=== PATIENT | male | born 1970 | race Caucasian/White ===

== ENCOUNTER 2016-11-23 22:10 | Observation (INO) ==
[2016-11-23] MEDS ORDERED: *HR* Morphine 2 MG/ML SYRINGE IVP ONE (22:48)
[2016-11-23] MEDS ORDERED: Ondansetron 4 MG/2 ML VIAL IVP ONE (22:49)
--- NOTE | 2016-11-23 22:53 | Emergency Department Note ---
Disposition Clinical Impression: Epididymitis Disposition: Admitted As Inpatient Condition: Good Male Urogenital HPI - General Chief complaint: ED Urogenital-Male Stated complaint: Swollen Testricles Time Seen by Provider: 11/23/16 22:19 Source: patient, family Mode of arrival: private vehicle Limitations: no limitations Nursing Notes Reviewed: Yes Vital Signs Reviewed: Yes - History of Present Illness Pt Subjective Complaint: testicle pain, testicle swelling, other (Sent here by primary care provider for admission. Diagnosed with epididymitis on Sunday by ultrasound. Was started on antibiotics and is getting worse.) Onset (ago): week(s) Duration: constant Location: left testicle Radiation: left inguinal region Severity: moderate Quality: aching, sharp, stabbing Improves with: none Worsens with: palpation, movement other (Immunocompromised) Reports: swelling, mass (Tender thickened area inferior to the left testicle. ) , fever, nausea/vomiting (Nausea, no vomiting). Denies: discharge, urinary retention, hematuria, dysuria, incontinence - Related Data Sexually active: Yes Previous Rx's Medication Instructions Recorded Amoxicillin/Clavulanate [Augmentin] 875 mg PO BIDWM #10 tablet 06/06/15 Potassium Chloride 20 meq PO BID #6 tab.er.prt 06/06/15 Meloxicam [Mobic] 7.5 mg PO DAILY #10 tablet 10/13/16 Allergies Allergy/AdvReac Type Severity Reaction Status Date / Time doxycycline Allergy Diarrhea Verified 11/23/16 22:16 shellfish derived Allergy Anaphylaxis Verified 11/23/16 22:16 All systems ED: reviewed and negative except as stated. Review of Systems: As Per HPI Constitutional: Reports: fever. Denies: chills, weakness, weight change, night sweats Eyes: Denies: eye pain, eye discharge Cardiovascular: Denies: chest pain, palpitations Respiratory: Denies: dyspnea Gastrointestinal: Reports: abdominal pain ("A little, sometimes." Patient points to the suprapubic area), nausea. Denies: vomiting, diarrhea, constipation, hematemesis, melena Genitourinary: Reports: as per HPI, testicular pain. Denies: urgency, dysuria, frequency, hematuria, discharge, genital lesions Musculoskeletal: Denies: back pain, joint swelling, arthralgia Integumentary: Denies: rash, abrasion, lesions Neurological: Denies: headache, weakness Hematological/Lymphatic: Denies: easy bleeding, easy bruising, lymphadenopathy Past Medical History - Past Medical History Attestation: Yes The following information was validated with the patient. Source: patient Medical history: Reports: HIV/AIDS, other Surgical history: Reports: non-contributory Psychiatric history: Reports: no psych history - Social History Smoking Status: Current every day smoker Smokeless Tobacco Status: No Alcohol use: Reports: none Drug use: Reports: none Physical Exam - General Limitations: no limitations General appearance: alert, in no apparent distress - Head Head exam: normal inspection - Eye Eye exam: Present: normal appearance, PERRL. Absent: scleral icterus, conjunctival injection, periorbital swelling - ENT ENT exam: mucous membranes moist - Neck Neck exam: Present: normal inspection, full ROM. Absent: meningismus - Chest Chest inspection: Present: normal inspection - Respiratory Respiratory exam: Present: normal lung sounds bilaterally. Absent: respiratory distress - Cardiovascular Cardiovascular exam: Present: normal rhythm, tachycardia, normal heart sounds - Male exam: Present: circumcised, erythema (Mild, left side of scrotum), other ( Genitourinary exam done by Dr. Reynoso. I observed but did not repeat palpation of the area.). Absent: penile swelling, lesions, balanitis, priapism, ulcerations, urethral discharge - Extremities Exam Extremities exam: Present: normal inspection, full ROM, normal capillary refill - Neurological Exam Neurological exam: Present: alert, oriented X3, CN II-XII intact, normal gait - Psychiatric Psychiatric exam: Present: normal affect, normal mood - Skin Skin exam: Present: warm, dry, intact, normal color Course Course Narrative: Patient has had left testicular pain since last Sunday. Sunday he noticed some swelling and more pain. He was seen by his primary care provider Sunday and then was sent here for an ultrasound. He had a ultrasound done but was not seen by any provider. He followed up with his primary care provider and was given a shot of Rocephin and started on oral Bactrim for diagnosis of epididymitis. He states that he has been taking the Bactrim twice daily and the swelling and pain have gotten worse. He has had fever and nausea. He denies dysuria, hematuria or penile discharge. He does have mild suprapubic abdominal pain. He is currently afebrile, mildly tachycardic. He does have a history of HIV, however, states that his viral load is undetectable and CD4 count is 11,000. Labs and repeat ultrasound have been ordered. He has been seen by Dr. Reynoso, who actually did the genitourinary exam. I observed this, but did not repeat palpation of the area. Patient will require admission for IV antibiotics. Ultrasound is being repeated to evaluate for possible abscess as the patient describes a tender, thickened area inferior to the testicle. Ultrasound does not show an abscess. Patient received Cipro and azithromycin IV. He has already received Rocephin from his PCP on Sunday. The hospitalist has accepted the patient for admission. Vital Signs Temperature 98.1 F 11/23/16 22:11 Pulse Rate 114 11/23/16 22:11 Respiratory Rate 16 11/23/16 22:11 Blood Pressure 135/87 11/23/16 22:11 O2 Sat by Pulse Oximetry 97 11/23/16 22:11 Temperature 98.4 F 11/24/16 03:34 Pulse Rate 84 11/24/16 03:34 Respiratory Rate 16 11/24/16 03:34 Blood Pressure 110/68 11/24/16 03:34 O2 Sat by Pulse Oximetry 96 11/24/16 03:34 Oxygen Delivery Oxygen Delivery Room Air Urogenital-Male - Medical Records Medical records reviewed: Yes I reviewed the patient's medical records. - Lab Data Lab results reviewed: Yes I reviewed the patient's lab results. Lab results narrative: Laboratory Last Values WBC 9.1 K/mcL (4.3-11.1) 11/23/16 23:19 RBC 3.85 M/mcL (4.19-5.50) L 11/23/16 23:19 Hgb 12.6 g/dL (12.9-16.9) L 11/23/16 23:19 Hct 36.1 % (37.5-50.1) L 11/23/16 23:19 MCV 93.8 fL (83.0-100.0) 11/23/16 23:19 MCH 32.7 pg (28.0-33.3) 11/23/16 23:19 MCHC 34.9 g/dL (31.6-35.5) 11/23/16 23:19 RDW 12.2 % (11.5-14.5) 11/23/16 23:19 Plt Count 278 K/mcL (140-400) 11/23/16 23:19 MPV 8.7 fL (9.4-12.4) L 11/23/16 23:19 Immature Gran % 0.2 % (0-4) 11/23/16 23:19 Seg Neutrophils % 56.7 % 11/23/16 23:19 Lymphocytes % 31.6 % 11/23/16 23:19 Monocytes % 9.9 % 11/23/16 23:19 Eosinophils % 1.2 % 11/23/16 23:19 Basophils % 0.4 % 11/23/16 23:19 Neutrophils # 5.1 K/mcL (1.6-8.9) 11/23/16 23:19 Lymphocytes # 2.9 K/mcL (0.6-4.6) 11/23/16 23:19 Monocytes # 0.9 K/mcL (0.0-1.3) 11/23/16 23:19 Eosinophils # 0.1 K/mcL (0.0-0.6) 11/23/16 23:19 Basophils # 0.0 K/mcL (0.0-0.2) 11/23/16 23:19 Sodium 136 mEq/L (136-145) 11/23/16 23:19 Potassium 3.2 mEq/L (3.5-4.5) L 11/23/16 23:19 Chloride 99 mEq/L (98-109) 11/23/16 23:19 Carbon Dioxide 24 mEq/L (19-29) 11/23/16 23:19 BUN 11 mg/dL (8-26) 11/23/16 23:19 Creatinine 0.77 mg/dL (0.72-1.25) 11/23/16 23:19 Est GFR ( Amer) > 60 (> 60) 11/23/16 23:19 Est GFR (Non-Af Amer) > 60 (> 60) 11/23/16 23:19 BUN/Creatinine Ratio 14 (6-26) 11/23/16 23:19 Glucose 84 mg/dL (70-99) 11/23/16 23:19 Calculated Osmolality 281 (280-300) 11/23/16 23:19 Calcium 9.4 mg/dL (8.6-10.8) 11/23/16 23:19 Urine Color Yellow (Yellow) 11/23/16 23:12 Urine Clarity Clear (Clear) 11/23/16 23:12 Urine pH 6.5 pH Units (5.0-8.0) 11/23/16 23:12 Ur Specific [place] 1.007 (1.010-1.025) L 11/23/16 23:12 Urine Protein Negative mg/dL (Neg-Trace) 11/23/16 23:12 Urine Glucose (UA) Normal mg/dL (Normal) 11/23/16 23:12 Urine Ketones Negative mg/dL (Negative) 11/23/16 23:12 Urine Blood Trace (Negative) H 11/23/16 23:12 Urine Nitrite Negative (Negative) 11/23/16 23:12 Urine Bilirubin Negative (Negative) 11/23/16 23:12 Urine Urobilinogen Normal mg/dL (Normal) 11/23/16 23:12 Ur Leukocyte Esterase Moderate (Negative) H 11/23/16 23:12 Urine Microscopic RBC 0-3 per hpf (0-3) 11/23/16 23:12 Urine Microscopic WBC 30-50 per hpf (0-3) H 11/23/16 23:12 Ur Squamous Epith Cells Many per lpf (None-Few) H 11/23/16 23:12 Urine Bacteria None Seen per hpf (None-Few) 11/23/16 23:12 Hyaline Casts None Seen per lpf (None-Few) 11/23/16 23:12 Ur Culture Indicated? YES (NO) A 11/23/16 23:12 Chlam trachomat DNA PCR DETECTED (Not Detect) A 11/23/16 23:34 N.gonorrhoeae DNA (PCR) NOT DETECTED (Not Detect) 11/23/16 23:34 Result diagrams: 11/23/16 23:19 11/23/16 23:19 Lab Results 11/23/16 11/23/16 11/23/16 Range/Units 23:12 23:19 23:19 WBC 9.1 (4.3-11.1) K/mcL RBC 3.85 L (4.19-5.50) M/mcL Hgb 12.6 L (12.9-16.9) g/dL Hct 36.1 L (37.5-50.1) % MCV 93.8 (83.0-100.0) fL MCH 32.7 (28.0-33.3) pg MCHC 34.9 (31.6-35.5) g/dL RDW 12.2 (11.5-14.5) % Plt Count 278 (140-400) K/mcL MPV 8.7 L (9.4-12.4) fL Immature Gran % 0.2 (0-4) % Seg Neutrophils % 56.7 % Lymphocytes % 31.6 % Monocytes % 9.9 % Eosinophils % 1.2 % Basophils % 0.4 % Neutrophils # 5.1 (1.6-8.9) K/mcL Lymphocytes # 2.9 (0.6-4.6) K/mcL Monocytes # 0.9 (0.0-1.3) K/mcL Eosinophils # 0.1 (0.0-0.6) K/mcL Basophils # 0.0 (0.0-0.2) K/mcL Sodium 136 (136-145) mEq/L Potassium 3.2 L (3.5-4.5) mEq/L Chloride 99 (98-109) mEq/L Carbon Dioxide 24 (19-29) mEq/L BUN 11 (8-26) mg/dL Creatinine 0.77 (0.72-1.25) mg/dL Est GFR ( Amer) > 60 (> 60) Est GFR (Non-Af Amer) > 60 (> 60) BUN/Creatinine Ratio 14 (6-26) Glucose 84 (70-99) mg/dL Calculated Osmolality 281 (280-300) Calcium 9.4 (8.6-10.8) mg/dL Urine Color Yellow (Yellow) Urine Clarity Clear (Clear) Urine pH 6.5 (5.0-8.0) pH Units Ur Specific [place] 1.007 L (1.010-1.025) Urine Protein Negative (Neg-Trace) mg/dL Urine Glucose (UA) Normal (Normal) mg/dL Urine Ketones Negative (Negative) mg/dL Urine Blood Trace H (Negative) Urine Nitrite Negative (Negative) Urine Bilirubin Negative (Negative) Urine Urobilinogen Normal (Normal) mg/dL Ur Leukocyte Esterase Moderate H (Negative) Urine Microscopic RBC 0-3 (0-3) per hpf Urine Microscopic WBC 30-50 H (0-3) per hpf Ur Squamous Epith Cells Many H (None-Few) per lpf Urine Bacteria None Seen (None-Few) per hpf Hyaline Casts None Seen (None-Few) per lpf Ur Culture Indicated? YES A (NO) Chlam trachomat DNA PCR (Not Detect) N.gonorrhoeae DNA (PCR) (Not Detect) 11/23/16 Range/Units 23:34 WBC (4.3-11.1) K/mcL RBC (4.19-5.50) M/mcL Hgb (12.9-16.9) g/dL Hct (37.5-50.1) % MCV (83.0-100.0) fL MCH (28.0-33.3) pg MCHC (31.6-35.5) g/dL RDW (11.5-14.5) % Plt Count (140-400) K/mcL MPV (9.4-12.4) fL Immature Gran % (0-4) % Seg Neutrophils % % Lymphocytes % % Monocytes % % Eosinophils % % Basophils % % Neutrophils # (1.6-8.9) K/mcL Lymphocytes # (0.6-4.6) K/mcL Monocytes # (0.0-1.3) K/mcL Eosinophils # (0.0-0.6) K/mcL Basophils # (0.0-0.2) K/mcL Sodium (136-145) mEq/L Potassium (3.5-4.5) mEq/L Chloride (98-109) mEq/L Carbon Dioxide (19-29) mEq/L BUN (8-26) mg/dL Creatinine (0.72-1.25) mg/dL Est GFR ( Amer) (> 60) Est GFR (Non-Af Amer) (> 60) BUN/Creatinine Ratio (6-26) Glucose (70-99) mg/dL Calculated Osmolality (280-300) Calcium (8.6-10.8) mg/dL Urine Color (Yellow) Urine Clarity (Clear) Urine pH (5.0-8.0) pH Units Ur Specific [place] (1.010-1.025) Urine Protein (Neg-Trace) mg/dL Urine Glucose (UA) (Normal) mg/dL Urine Ketones (Negative) mg/dL Urine Blood (Negative) Urine Nitrite (Negative) Urine Bilirubin (Negative) Urine Urobilinogen (Normal) mg/dL Ur Leukocyte Esterase (Negative) Urine Microscopic RBC (0-3) per hpf Urine Microscopic WBC (0-3) per hpf Ur Squamous Epith Cells (None-Few) per lpf Urine Bacteria (None-Few) per hpf Hyaline Casts (None-Few) per lpf Ur Culture Indicated? (NO) Chlam trachomat DNA PCR DETECTED A (Not Detect) N.gonorrhoeae DNA (PCR) NOT DETECTED (Not Detect) - Radiology Data Radiology results reviewed: Yes I reviewed the patient's radiology results. Scrotum Ultrasound 11/23/16 22:45 IMPRESSION: 1. Enlarged and minimally hypervascular left epididymis. Findings are suggestive of stable to slightly improved left epididymitis. Small left hydrocele. 2. No evidence of testicular torsion. D/ / Alex Liao MD / Alex Liao MD Interpreting Provider: Alex Liao MD Attestation Statement - Attestation Attestation: I, Matias Reynoso, examined this patient and my medical decision-making was reviewed with the [employer] SALES REPRESENTATIVE/PA/Advanced Practice Nurse/Resident Physician. I agree with the documented findings, disposition and treatment plan as described except to the extent set forth below. 46-year-old male presents emergency Department with concerns of left swollen testicle. Patient states he was recently seen by his primary care provider and given a dose of ceftriaxone and started on Bactrim. He had an ultrasound which showed evidence of left epididymitis without evidence of torsion. Patient has continued increasing edema and pain to the left testicle. Pt will be given antibiotics and admitted to the hospital for further care and evaluation of a likely left orchitis.
[2016-11-23 23:23] LABS: Bilirubin,Urine Negative (Negative); Blood,Urine Trace (Negative); Clarity,Urine Clear (Clear); Color,Urine Yellow (Yellow); Glucose,Urine (UA) Normal (Normal); Ketones,Urine Negative (Negative); Leukocyte Esterase,Urine Moderate (Negative); Nitrite,Urine Negative (Negative); PH,Urine 6.5 pH Units (5.0-8.0); Protein,Urine Negative (Neg-Trace); Specific Gravity,Urine 1.007 (1.010-1.025); Urobilinogen,Urine Normal (Normal)
[2016-11-23 23:26] LABS: Bacteria,Urine None Seen per hpf (None-Few); Hyaline Casts,Urine None Seen per lpf (None-Few); RBC,Urine 0-3 per hpf (0-3); Squamous Epithelial Cell,Urine Many per lpf (None-Few); WBC,Urine 30-50 per hpf (0-3)
[2016-11-23 23:27] LABS: Basophils % 0.4 %; Eosinophils # 0.1 K/mcL (0.0-0.6); Eosinophils % 1.2 %; Hematocrit 36.1 % (37.5-50.1); Hemoglobin 12.6 g/dL (12.9-16.9); Immature Granulocytes % 0.2 % (0-4); Lymphocytes # 2.9 K/mcL (0.6-4.6); Lymphocytes % 31.6 %; Mean Corpuscular HGB Conc 34.9 g/dL (31.6-35.5); Mean Corpuscular Hemoglobin 32.7 pg (28.0-33.3); Mean Corpuscular Volume 93.8 fL (83.0-100.0); Mean Platelet Volume 8.7 fL (9.4-12.4); Monocytes # 0.9 K/mcL (0.0-1.3); Monocytes % 9.9 %; Neutrophils # 5.1 K/mcL (1.6-8.9); Platelet Count 278 K/mcL (140-400); Red Blood Count 3.85 M/mcL (4.19-5.50); Red Cell Distribution Width 12.2 % (11.5-14.5); Segmented Neutrophils % 56.7 %
[2016-11-24] MEDS ORDERED: Azithromycin 1,000 MG in D5% in Water 250 ML IVPB ONE (00:25)
[2016-11-24] MEDS ORDERED: Azithromycin 1,000 MG in D5% in Water 500 ML IVPB ONE (01:00)
[2016-11-24 01:19] LABS: BUN/Creatinine Ratio 14 (6-26); Blood Urea Nitrogen 11 mg/dL (8-26); Calcium 9.4 mg/dL (8.6-10.8); Carbon Dioxide 24 mEq/L (19-29); Chloride 99 mEq/L (98-109); Glucose 84 mg/dL (70-99); Osmolality,Calculated 281 (280-300); Potassium 3.2 mEq/L (3.5-4.5); Sodium 136 mEq/L (136-145); eGFR For African Americans > 60 (> 60); eGFR For Non-African Americans > 60 (> 60)
[2016-11-24] MEDS ORDERED: *HR* Morphine 2 MG/ML SYRINGE IVP ONE (01:35)
[2016-11-24] MEDS ORDERED: *HR* Morphine 2 MG/ML SYRINGE ONE (01:42)
[2016-11-24] MEDS ORDERED: Acetaminophen 325 MG TABLET PO PRN (02:11)
--- NOTE | 2016-11-24 02:15 | Internal Med History&Physical ---
Date of Encounter: 11/24/16 Time of Encounter: 02:00 Assessment and Plan (1) Epididymitis Current visit: Yes Status: Acute Secondary to chalmydia, Urine positive for chalmydia PCR Patient is allergic to doxycycline Received cipro and azitho in ER Continue with levaquin, to cover UTI as well, pending urine culture Pain control (2) HIV disease Current visit: Yes Status: Chronic Seemingly controlled per patient, undetectable viral load and CD4 count 1103 4 months ago Continue patient's own supply of HAART-Genvoya one tab daily Follow up with PCP (3) UTI (urinary tract infection) Current visit: Yes Status: Acute Start patient on levofloxacin, follow urine culture. Qualifiers: Urinary tract infection type: acute cystitis Hematuria presence: without hematuria Qualified Code(s): N30.00 - Acute cystitis without hematuria Internal Medicine - H&P: HPI Chief complaint: L testicular pain Admitted From: Home Plans for Post Hospital Care: Home History of present illness: Mr. Burgos is a 46 year old male with HIV on HAART who had been treated for epididymitis by he primary care physician since about 3 days ago. However patient represents to the ER complaining of worsening pain, fever and nausea. He has been treated with 1 dose of ceftriaxone IM, and also was on Augmentin at home. He reports his HIV disease is controlled with an undetectable viral load and CD 4 count of 1103 Ultrasound done in the ER here shows improving left epididymitis. With a left hydrocele. Midstream urine shows positivity for chlamydia. Patient reported adverse reaction to doxycycline, hence he was given azithromycin and ciprofloxacin in the ER. At time of review, he reports some improvement. He denies fever or chills, flank pain, abdominal pain. His main complain is left groin pain worse on standing . He denies urethral discharge or dysuria He is a MSM Review of system is noncontributory. Past Med Surg Social Fam HX - Past Medical History Medical history: HIV/AIDS, other Psychiatric history: no psych history - Past Surgical History Surgical History: non-contributory - Social History Smoking Status: Current every day smoker Smokeless Tobacco Status: No Alcohol use: none Drug use: none Internal Medicine - H&P: Meds Amoxicillin/Clavulanate [Augmentin] 875 mg PO BIDWM #10 tablet 06/06/15 [Rx] Potassium Chloride 20 meq PO BID #6 tab.er.prt 06/06/15 [Rx] Meloxicam [Mobic] 7.5 mg PO DAILY #10 tablet 10/13/16 [Rx] 3 Allergy/AdvReac Type Severity Reaction Status Date / Time doxycycline Allergy Diarrhea Verified 11/23/16 22:16 shellfish derived Allergy Anaphylaxis Verified 11/23/16 22:16 All Systems PM: A 10-system review of systems was performed and is negative for pertinent findings except as documented above in the HPI. - Constitutional Constitutional: no chills, no fever(s) - EENT Eyes: no change in vision, no discharge, no pain, no photophobia Ears: no ear discharge, no ear pain, no tinnitus Nose, mouth and throat: no dysphagia, no nasal discharge, no neck pain, no sore throat - Cardiovascular Cardiovascular ROS IM: no chest pain, no diaphoresis, no dyspnea, no lightheadedness, no palpitations, no syncope - Respiratory Respiratory: no cough, no dyspnea, no wheezing, no excessive phlegm production - Gastrointestinal Gastrointestinal: no abdominal pain, no diarrhea, no hematemesis, no hematochezia, no melena, no nausea, no vomiting - Genitourinary Genitourinary ROS male: as per HPI - Musculoskeletal Musculoskeletal ROS IM: no numbness, no tingling - Integumentary Integumentary IM: no rash, no unusual bruising - Neurological Neurological ROS: no confusion, no convulsions, no focal weakness, no numbness, no tingling, no tremor(s) - Endocrine Endocrine IM: no cold intolerance - Hematologic/Lymphatic Hematologic/Lymphatic: no easy bruising - Constitutional Vitals: Temp Pulse Resp BP Pulse Ox 98.1 F 99 17 124/79 99 11/23/16 22:11 11/24/16 00:13 11/24/16 00:13 11/24/16 00:13 11/24/16 00:13 General appearance: Present: mild distress, A&O X 3, pleasant - Head Head exam: Present: atraumatic, normocephalic - Eye Eye exam: Present: PERRL, conjuntiva pink, sclera anicteric Pupils: Present: PERRL - Neck Neck exam general surgery: Present: supple, trachea midline. Absent: lymphadenopathy - Respiratory Respiratory exam: Present: CTAB. Absent: accessory muscle use, rales, rhonchi, wheezes - Cardiovascular Cardiovascular exam: Present: RRR, +S1, +S2. Absent: diastolic murmur, gallop, rubs, systolic murmur - GI/Abdominal GI/Abdominal exam: Present: normal bowel sounds, soft, no peritoneal signs. Absent: distended, tenderness - Additional comments: Not repeated, see ER note for findings - Extremities Exam Extremities exam: Present: warm, radial pulses palpable and symmetrical. Absent : calf tenderness, cyanotic, pedal edema - Neurological Exam Neurological exam: Present: alert, CN II-XII intact, oriented X3, no focal deficits. Absent: pronater drift, facial droop, speech deficit - Skin Skin exam: Present: dry, intact Internal Med - H&P Results - Labs CBC & Chem 7: 11/23/16 23:19 11/23/16 23:19
[2016-11-24] MEDS ORDERED: *HR* HYDROcodone/Acet 10/325 mg TABLET PO PRN (02:55)
[2016-11-24] MEDS ORDERED: cefTRIAXone 250 MG VIAL IM ONE (08:05)
--- NOTE | 2016-11-24 10:07 | Discharge Summary ---
Date of Encounter: 11/24/16 Time of Encounter: 08:50 - Discharge Diagnosis (1) Epididymitis Priority: Primary Status: Acute (2) HIV disease Priority: Secondary Status: Chronic (3) UTI (urinary tract infection) Priority: Secondary Status: Acute Qualifiers: Urinary tract infection type: acute cystitis Hematuria presence: without hematuria Qualified Code(s): N30.00 - Acute cystitis without hematuria - Discharge Medications Prescriptions: levoFLOXacin [Levaquin] 500 mg PO DAILY #10 tablet Home Medications: Butorphanol Tartrate 10 mg NS AD PRN 11/24/16 [History] Dronabinol [Marinol] 5 mg PO BID 11/24/16 [History] Elviteg/Beata/Emtric/Tenofo Ala [Genvoya Tablet] 1 tab PO DAILY 11/24/16 [History ] Methylphenidate HCl [Ritalin] 30 mg PO BID 11/24/16 [History] Nabumetone 750 mg PO BID 11/24/16 [History] Ondansetron HCl [Zofran] 4 mg PO Q6H PRN 11/24/16 [History] Oxycodone HCl/Acetaminophen [Percocet 10-325 mg Tablet] 1 tab PO QID PRN [History] Venlafaxine [Effexor] 75 mg PO BID 11/24/16 [History] levoFLOXacin [Levaquin] 500 mg PO DAILY #10 tablet 11/24/16 [Rx] Allergies/Adverse Reactions: 3 Allergy/AdvReac Type Severity Reaction Status Date / Time shellfish derived Allergy Anaphylaxis Verified 11/23/16 22:16 doxycycline AdvReac Diarrhea Verified 11/24/16 08:30 Date of admission: 11/24/16 01:57 Primary care physician: Elio Brito MD Discharging clinician: Stevie Huff Anticipated date of discharge: 11/24/16 - Patient Status Disposition: Home, Self-Care Condition: Good Functional capacity at discharge: independent ambulation Overall status at discharge: patient is progressing back to baseline - Discharge Instructions Instructions: Levofloxacin (By mouth), Epididymitis (DC), Urinary Tract Infection in Men (DC) Follow Up With: Elio Brito MD [Primary Care Provider] - (1 week) - Diet and Activity Activity: increase activity as tolerated Diet: advance to your usual diet Hospital course: Mr. Burgos is a 46 year old male patient was hospitalized here after being diagnosed with epididymitis. He had been treated with outpatient antibiotics but developed an allergic reaction to it and so he will was monitored after being started on ciprofloxacin here. She has since been doing well and is stable to be discharged home. He will follow up with his primary care provider and complete treatment course with ciprofloxacin. His urine screen for chlamydia was positive but was negative for gonorrhea. He has been advised to let his partner know that he needs to be treated too. He did receive ceftriaxone in the ER. - Time Spent with Patient Total time spent providing and/or coordinating discharge services: Less than 30 minutes (20 min) - Constitutional Vitals: Temp Pulse Resp BP Pulse Ox 98.5 F 90 16 117/63 95 11/24/16 06:50 11/24/16 06:50 11/24/16 06:50 11/24/16 06:50 11/24/16 07:22 General appearance: Present: cooperative, A&O X 3, pleasant, answers questions appropriately - Respiratory Respiratory exam: Present: CTAB. Absent: accessory muscle use, rales, rhonchi, wheezes - Cardiovascular Cardiovascular exam: Present: RRR, +S1, +S2. Absent: diastolic murmur, gallop, rubs, systolic murmur - Extremities Exam Extremities exam: Present: warm, radial pulses palpable and symmetrical. Absent : calf tenderness, cyanotic, pedal edema
[2016-11-24 11:21] VITALS: BP 119/68
[2016-11-24] MEDS ORDERED: Levofloxacin 500 MG/100 ML 500 MG/100 ML BAG IVPB SCH (23:00)
== END 2016-11-24 12:19 | disposition home or self-care (01) ==
LOC: EMEROO 22:10 → 3NENU 22:10
PROVIDERS: ADMIT Internal Medicine; ATTEND Internal Medicine